=== PATIENT | female | born 1970 | race Caucasian/White ===

== ENCOUNTER 2019-07-13 20:53 | Emergency (ER) | payer OTHER ==
[2019-07-13] MEDS ORDERED: Nitrofurantoin Monohydrate/Macrocrystalline 100 MG Cap PO ONE (21:41)
[2019-07-13] MEDS ORDERED: cefTRIAXone 1 GM Vial IM ONE (21:41)
--- NOTE | 2019-07-13 21:46 | EDM.PDOC ---
ED HPI GENERAL MEDICAL PROBLEM - General Chief Complaint: Genitourinary Problem Stated Complaint: urinary burning Time Seen by Provider: 07/13/19 21:15 Source of Information: Reports: Patient History Limitations: Reports: No Limitations - History of Present Illness INITIAL COMMENTS - FREE TEXT/NARRATIVE: Patient comes to ER complaining of sudden dysuria and hematuria present since 6pm tonight (3 hours). No significant history of previous UTIs. [place] well earlier today. No fevers/chills. No other pain/discomfort. Denies headaches/backpain/abdominal pain. No nausea/emesis/bowel changes. No other complaints. Bladder Pain Score (Numeric/FACES): 7 - Related Data Allergies Allergy/AdvReac Type Severity Reaction Status Date / Time No Known Allergies Allergy Verified 07/13/19 20:59 Home Meds: Home Meds Mycophenolate Mofetil 1,500 mg PO BID 07/13/19 [History] Nitrofurantoin Monohyd/M-Cryst [Macrobid 100 mg Capsule] 100 mg PO Q12H #9 capsule 07/13/19 [Rx] Past Medical History HEENT History: Reports: Other (See Below) (White Dot Syndrome/AMPPE of eyes) - Past Surgical History Female Surgical History: Reports: Hysterectomy Social & Family History - Tobacco Use Smoking Status *Q: Never Smoker Second Hand Smoke Exposure: No - Caffeine Use Caffeine Use: Reports: Coffee - Recreational Drug Use Recreational Drug Use: No ED ROS GENERAL - Review of Systems Review Of Systems: Comprehensive ROS is negative, except as noted in HPI. ED EXAM, GENERAL - Physical Exam Exam: See Below Exam Limited By: No Limitations General Appearance: Alert, WD/WN, No Apparent Distress Eye Exam: Bilateral Eye: EOMI, PERRL Ears: Hearing Grossly Normal Nose: No: Nasal Deformity, Nasal Swelling, Nasal Drainage Throat/Mouth: Normal Lips, Normal Voice, No Airway Compromise Head: Atraumatic, Normocephalic Neck: Supple Respiratory/Chest: No Respiratory Distress GI/Abdominal: Soft, Non-Tender, No Distention (Female) Exam: Deferred Rectal (Female) Exam: Deferred Back Exam: Normal Inspection. No: CVA Tenderness (L), CVA Tenderness (R), Muscle Spasm, Paraspinal Tenderness, Vertebral Tenderness Extremities: Normal Capillary Refill Neurological: Alert, Oriented, Normal Cognition, Normal Gait, No Motor/Sensory Deficits Psychiatric: Normal Affect, Normal Mood Skin Exam: Warm, Dry, Intact, Normal Color Course - Vital Signs Last Recorded V/S: Last Vital Signs Temp 36.7 C 07/13/19 20:54 Pulse 106 H 07/13/19 20:54 Resp 20 07/13/19 20:54 BP 154/95 H 07/13/19 20:54 Pulse Ox 97 07/13/19 20:54 - Orders/Labs/Meds Orders: Active Orders 24 hr Category Date Time Status CULTURE URINE [RM] Routine Lab 07/13/19 21:41 Results Labs: Laboratory Tests 07/13/19 Range/Units 21:00 Specimen Type Urinblad Urine Color Red Urine Appearance Slightly cloudy Urine pH 7.0 (5.0-9.0) Ur Specific [place] 1.010 (1.005-1.030) Urine Protein >=300 H (NEGATIVE) mg/dL Urine Glucose (UA) Negative (NEGATIVE) mg/dL Urine Ketones Negative (NEGATIVE) mg/dL Urine Occult Blood Large H (NEGATIVE) Urine Nitrite Negative (NEGATIVE) Urine Bilirubin Negative (NEGATIVE) Urine Urobilinogen 0.2 (0.2-1.0) E.U./dL Ur Leukocyte Esterase Small H (NEGATIVE) Urine RBC >100 H /HPF Urine WBC 20-30 H /HPF Ur Epithelial Cells Few /LPF Urine Bacteria Few (NONE TO FEW) /HPF Meds: Medications Discontinued Medications Generic Name Dose Route Start Last Admin Trade Name Freq PRN Reason Stop Dose Admin Ceftriaxone Sodium 1 gm 07/13/19 21:41 07/13/19 21:46 Rocephin IM 07/13/19 21:42 1 gm ONETIME ONE Administration Lidocaine HCl Confirm 07/13/19 21:44 Xylocaine-Mpf 1% Administered 07/13/19 21:45 Dose 5 ml .ROUTE .STK-MED ONE Nitrofurantoin Macrocrystals 100 mg 07/13/19 21:41 07/13/19 21:46 Macrobid PO 07/13/19 21:42 100 mg ONETIME ONE Administration - Re-Assessments/Exams Free Text/Narrative Re-Assessment/Exam: 07/13/19 21:50 UA + for hematuria and WBCs. Culture ordered. Discussed treatment options. Patient opted for Rocephin IM. Will also start her on Macrobid 100mg po BID for 5 days. Recommend recheck of urine Friday or next Friday. Precautions reviewed. To follow up as needed if no response is noted within 48 hours. Pyridium dispensed from ER stock. Departure - Departure Time of Disposition: 22:00 Disposition: Home, Self-Care 01 Condition: Good Clinical Impression: UTI, Urinary tract infectious disease - Discharge Information *PRESCRIPTION DRUG MONITORING PROGRAM REVIEWED*: Not Applicable *COPY OF PRESCRIPTION DRUG MONITORING REPORT IN PATIENT ABDIAS: Not Applicable Prescriptions: Nitrofurantoin Monohyd/M-Cryst [Macrobid 100 mg Capsule] 100 mg PO Q12H #9 capsule Instructions: Nitrofurantoin tablets or capsules, Ceftriaxone injection, Urinary Tract Infection, Adult, [id number] Referrals: Suha Huerta CNM [Primary Care Provider] - Forms: ED Department Discharge Additional Instructions: Take the Pyridium you received in the ER one tab every 8 hours to help with urinary discomfort. Call your clinic tomorrow at the and tell them you needed antibiotics for an acute urinary tract infection. See if they want to make any changes to our plan. Prescription for Macrobid 100mg every 12 hours was given to you tonight. 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 You were given the first tablet here tonight. Follow up as needed if you have worsening problems or if you do not see improvement of symptoms within 48 hours. - My Orders Last 24 Hours: My Active Orders 07/13/19 21:41 CULTURE URINE [RM] Routine - Assessment/Plan Last 24 Hours: My Active Orders 07/13/19 21:41 CULTURE URINE [RM] Routine
== END 2019-07-13 22:02 | disposition home or self-care (01) ==
LOC: LL.ED 20:53
DX: N39.0 Urinary tract infection, site not specified (principal)
CPT/HCPCS: 81001; 87086; 87088; 87186; 96372; 99283-25; A9270-GY; J0696

== ENCOUNTER 2020-07-27 08:03 | Day surgery (SDC) | payer OTHER ==
[~2020-07-27 08:03] MED LIST: Lactated Ringers 1,000 ML IV SCH; Sodium Chloride 0.9% 10 ML Syringe FLUSH PRN
[2020-07-27] MEDS ORDERED: Midazolam 1 MG/ML 2 ML SDV ONE ×2 (08:32→09:14)
[2020-07-27] MEDS ORDERED: Propofol 200 MG/20 ML SDV ONE ×2 (08:32→09:14)
--- NOTE | 2020-07-27 09:16 | PCM.HP.2 ---
H&P History of Present Illness - General Date of Service: 07/27/20 Admit Problem/Dx: Admission Diagnosis/Problem Admission Diagnosis/Problem Colonoscopy Source of Information: Patient, Old Records History Limitations: Reports: No Limitations - History of Present Illness Initial Comments - Free Text/Narative: Here for screening colonoscopy - Related Data Allergies/Adverse Reactions: Allergies Allergy/AdvReac Type Severity Reaction Status Date / Time No Known Allergies Allergy Verified 07/27/20 08:17 Home Medications: Home Meds Ascorbic Acid [Vitamin C] 2 tab PO DAILY 07/25/19 [History] Calcium Carbonate [Calcium] 2 tab PO DAILY 07/25/19 [History] Cholecalciferol (Vitamin D3) [Vitamin D3] 2 cap PO DAILY 07/25/19 [History] predniSONE 40 mg PO WITHBREAKFAST PRN 07/25/19 [History] L.acidoph,Paracasei, B.lactis [Probiotic] 1 each PO DAILY 07/27/20 [History] mycophenolate mofetiL [Mycophenolate Mofetil] 3 tab PO BID 07/27/20 [History] Past Medical History HEENT History: Reports: Other (See Below) Other HEENT History: bilateral chorioretinitis. bilateral posterior uveitis. bilateral MEWDS Psychiatric History: Reports: Anxiety Endocrine/Metabolic History: Reports: Obesity/BMI 30+ Oncologic (Cancer) History: Reports: Cervix - Past Surgical History GI Surgical History: Reports: Appendectomy Female Surgical History: Reports: Cervical Conization, Hysterectomy, LEEP Social & Family History - Tobacco Use Tobacco Use Status *Q: Never Tobacco User - Caffeine Use Caffeine Use: Reports: Coffee H&P Review of Systems - Review of Systems: Review Of Systems: Comprehensive ROS is negative, except as noted in HPI. Exam - Exam Exam: See Below - Vital Signs Vital Signs: Last Vital Signs Temp 97.8 F 07/27/20 08:25 Pulse 103 H 07/27/20 08:25 Resp 18 07/27/20 08:25 BP 138/90 07/27/20 08:25 Pulse Ox 97 07/27/20 08:25 Weight: 77.111 kg - Exam General: Alert, Oriented Lungs: Clear to Auscultation, Normal Respiratory Effort Cardiovascular: Regular Rate, Regular Rhythm GI/Abdominal Exam: Soft, Non-Tender Sepsis Event Note - Focused Exam Vital Signs: Vital Signs Temp Pulse Resp BP Pulse Ox 07/27/20 08:25 97.8 F 103 H 18 138/90 97 Problem List Initiated/Reviewed/Updated: Yes Orders Last 24hrs: Active Orders 24 hr Category Date Time Status Patient Status [ADT] Routine ADT 07/27/20 08:00 Active Peripheral IV Care [RC] . DIRECTED Care 07/27/20 08:00 Active Verify Patient Consent Obtain [RC] ASDIRECTED Care 07/27/20 08:00 Active Lactated Ringers [Ringers, Lactated] 1,000 ml Med 07/27/20 08:00 Active IV ASDIRECTED Sodium Chloride 0.9% [Saline Flush] Med 07/27/20 08:00 Active 10 ml FLUSH ASDIRECTED PRN Peripheral IV Insertion Adult [OM.PC] Routine Oth 07/27/20 08:00 Ordered Medication Orders Lactated Ringer's (Ringers, Lactated) 1,000 mls @ 125 mls/hr IV ASDIRECTED SAILAJA Last Admin: 07/27/20 08:46 Dose: 125 mls/hr Documented by: PIERCE Sodium Chloride (Saline Flush) 10 ml FLUSH ASDIRECTED PRN PRN Reason: Keep Vein Open Assessment/Plan Comment:: Colon Screening; ok to proceed. Risks and complications reviewed,consent obtained.
--- NOTE | 2020-07-27 09:39 | PCM.OPNOTE ---
- General Post-Op/Procedure Note Date of Surgery/Procedure: 07/27/20 Operative Procedure(s): Colonoscopy Findings: Normal Pre Op Diagnosis: Screening Post-Op Diagnosis: Same Anesthesia Technique: FRANKI Primary Surgeon: Pratik Rendon Anesthesia Provider: Tasha Ernst Complications: None Condition: Good
--- NOTE | 2020-07-27 12:45 | OR ---
Date of Procedure: 07/27/2020 PREOPERATIVE DIAGNOSIS: Colon screening. POSTOPERATIVE DIAGNOSIS: Normal colonoscopy. PROCEDURE: Colonoscopy. ANESTHESIA: IV sedation. PROCEDURE IN DETAIL: Patient was brought to procedure room where she was placed on her left side and IV sedation administered. Digital rectal exam was performed, which was normal. Colonoscope was inserted and advanced to the level of the cecum without difficulty. Cecal position was confirmed by identifying the appendiceal lumen and ileocecal valve. Prep was good and surfaces were well visualized. Upon withdrawing the scope, the ascending, transverse, and descending colon were normal in appearance. Sigmoid colon and rectum were normal. Retroflexion was normal. Air was removed and the scope withdrawn. Patient tolerated the procedure well and returned to recovery in stable condition. Recommend routine colon screening again in 10 years. MODL ADDIE LUND MD /[id number]
== END 2020-07-27 11:08 | disposition home or self-care (01) ==
LOC: LL.SDS 08:03
PROVIDERS: ATTEND Surgery
DX: Z12.11 Encounter for screening for malignant neoplasm of colon (principal); F41.9 Anxiety disorder, unspecified; E66.9 Obesity, unspecified; N76.0 Acute vaginitis; Z01.812 Encounter for preprocedural laboratory examination; Z20.828 Contact with and (suspected) exposure to other viral communicable diseases; Z79.899 Other long term (current) drug therapy; Z90.49 Acquired absence of other specified parts of digestive tract; Z98.890 Other specified postprocedural states; Z85.41 Personal history of malignant neoplasm of cervix uteri; Z68.29 Body mass index [BMI] 29.0-29.9, adult
CPT/HCPCS: 00812; J2250; J2704; J7120; U0002